=== PATIENT | female | born 1985 | race Caucasian/White ===

== ENCOUNTER 2018-09-07 22:36 | Inpatient (IN) | payer OTHER ==
[~2018-09-07] VITALS: Ht 170.2 cm; Wt 104.1 kg
[2018-09-07] MEDS ORDERED: ONDANSETRON 2MG/ML, 2ML IVPush PRN (23:00)
[2018-09-07] MEDS ORDERED: CALCIUM CARBONATE 500 MG TAB.CHEW PO PRN (23:00)
[2018-09-07] MEDS ORDERED: OXYTOCIN 30U/ 0.9% NaCL 500ML 500 ML IV ONE (23:00)
[2018-09-07] MEDS ORDERED: FENTANYL PF 100 MCG/2ML IV PRN (23:00)
[2018-09-07] MEDS ORDERED: D5%-LACTATED RINGERS 1,000 ML IV SCH (23:00)
[2018-09-07] MEDS ORDERED: TERBUTALINE 1 MG/ML, 1ML IVPush PRN (23:00)
[2018-09-07] MEDS ORDERED: FENTANYL PF 100 MCG/2ML IVPush PRN (23:00)
[2018-09-07 23:24] LABS: BASOPHILS # (AUTO) 0.01 x10^3/uL (0-0.1); BASOPHILS % (AUTO) 0 % (0-1); EOSINOPHILS # (AUTO) 0.12 x10^3/uL (0-0.4); EOSINOPHILS % (AUTO) 1 % (1-7); LYMPHOCYTES # (AUTO) 1.26 x10^3/uL (1-3.4); LYMPHOCYTES % (AUTO) 9 % (22-44); MD NO; MEAN CORPUSCULAR HEMOGLOBIN 29.4 pg (27.0-34.8); MEAN CORPUSCULAR HGB CONC 33.7 g/dL (32.4-35.8); MEAN CORPUSCULAR VOLUME 87.4 fL (80-100); MEAN PLATELET VOLUME 7.7 fL (7.4-10.4); MONOCYTES # (AUTO) 0.68 x10^3/uL (0.2-0.8); MONOCYTES % (AUTO) 5 % (2-9); NEUTROPHILS # (AUTO) 12.61 x10^3/uL (1.8-6.8); NEUTROPHILS % (AUTO) 86 % (42-75); PLATELET COUNT 249 x10^3/uL (130-400); RED BLOOD COUNT 4.22 x10^6/uL (3.82-5.3); RED CELL DISTRIBUTION WIDTH 13.6 % (9.6-15.2)
[2018-09-07] MEDS ORDERED: OXYTOCIN 30U/ 0.9% NaCL 500ML 500 ML ONE (23:24)
[2018-09-07] MEDS ORDERED: LIDOCAINE 1%, 20ML ONE (23:24)
[2018-09-07] MEDS ORDERED: MISOPROSTOL 200 MCG TABLET ONE (23:24)
[2018-09-07] MEDS ORDERED: FENTANYL/BUPIV./NS/PF 250 ML EPIDCONT SCH (23:26)
[2018-09-07] MEDS ORDERED: FENTANYL PF 500 MCG, BUPIVACAINE/PF 0.5%, 30ML 62.5 ML in SODIUM CHLORIDE 0.9% 177.5 ML EPIDCONT SCH (23:30)
[2018-09-07] MEDS ORDERED: BUPIVACAINE 0.25% ONE (23:58)
[2018-09-07] MEDS ORDERED: FENTANYL/BUPIV./NS/PF 250 ML EPIDCONT ONE (23:59)
[2018-09-08] MEDS ORDERED: FENTANYL/BUPIV./NS/PF 250 ML EPIDCONT ONE (00:05)
[2018-09-08] MEDS: LACTATED RINGERS 1,000 ML IV SCH ×2 (00:29→07:44)
[2018-09-08] MEDS ORDERED: PREN-59 PO (00:36)
[2018-09-08] MEDS ORDERED: RANI150T23 PO (00:36)
[2018-09-08] MEDS ORDERED: BUPIVACAINE 0.25% ONE (00:41)
[2018-09-08] MEDS ORDERED: TERBUTALINE 1 MG/ML, 1ML ONE (02:44)
[2018-09-08] MEDS ORDERED: NEWBORN KIT ONE (12:22)
[2018-09-08] MEDS ORDERED: CEFAZOLIN PMX 1GM/50ML 50 ML IV ONE (13:30)
[2018-09-08] MEDS ORDERED: MISOPROSTOL 200 MCG TABLET PR ONE (13:30)
[2018-09-08] MEDS ORDERED: CEFAZOLIN PMX 2GM/50ML 50 ML IVPB ONE (13:30)
[2018-09-08] MEDS ORDERED: OXYTOCIN 30U/ 0.9% NaCL 500ML 500 ML ONE (13:37)
[2018-09-08] MEDS: OXYTOCIN 30U/ 0.9% NaCL 500ML 500 ML IV SCH ×2 (13:41→23:31)
[2018-09-08 16:10] VITALS: BP 137/80
[2018-09-08] MEDS: IBUPROFEN 600 MG TABLET PO PRN (19:53)
[2018-09-08 21:02] LABS: MEAN CORPUSCULAR HEMOGLOBIN 29.4 pg (27.0-34.8); MEAN CORPUSCULAR HGB CONC 33.8 g/dL (32.4-35.8); MEAN CORPUSCULAR VOLUME 87.1 fL (80-100); PLATELET COUNT 234 x10^3/uL (130-400); RED BLOOD COUNT 3.78 x10^6/uL (3.82-5.3); RED CELL DISTRIBUTION WIDTH 13.8 % (9.6-15.2)
[2018-09-08 21:04] LABS: MD YES
[2018-09-08 21:07] LABS: <PLATELET ESTIMATE> ADEQUATE; <PLT MORPHOLOGY> NORMAL PLT MORPH; ANISOCYTOSIS 1+; BAND#(MANUAL) 1.74 x10^3/uL; BANDS%(MANUAL) 7 % (0-7); LYMPH#(MANUAL) 1.25 x10^3/uL (1-3.4); LYMPHS% (MANUAL) 5 % (22-44); MONOS% (MANUAL) 4 % (2-9); SEG#(MANUAL) 20.92 x10^3/uL (1.8-6.8); SEGS% (MANUAL) 84 % (42-75)
[2018-09-08 21:30] VITALS: BP 122/73
[2018-09-09] MEDS: IBUPROFEN 600 MG TABLET PO PRN ×3 (01:53→20:49)
[2018-09-09 05:00] VITALS: BP 110/75
[2018-09-09] MEDS: OXYcodone/APAP 5/325MG TABLET PO PRN ×2 (05:09→13:49)
[2018-09-09 07:40] VITALS: BP 108/71
[2018-09-09] MEDS: PRENATAL VIT/IRON/FA 1 EACH TABLET PO SCH (09:34)
[2018-09-09] MEDS: DOCUSATE 100 MG CAPSULE PO PRN ×2 (09:34→20:49)
[2018-09-09] MEDS: OXYTOCIN 30U/ 0.9% NaCL 500ML 500 ML IV SCH (19:31)
[2018-09-09 20:55] VITALS: BP 118/76
[2018-09-10] MEDS: IBUPROFEN 600 MG TABLET PO PRN ×2 (04:30→14:06)
[2018-09-10] MEDS: OXYTOCIN 30U/ 0.9% NaCL 500ML 500 ML IV SCH (05:31)
[2018-09-10 07:40] VITALS: BP 118/80
[2018-09-10] MEDS: PRENATAL VIT/IRON/FA 1 EACH TABLET PO SCH (07:49)
[2018-09-10] MEDS: DOCUSATE 100 MG CAPSULE PO PRN (07:49)
[2018-09-10] MEDS: OXYcodone/APAP 5/325MG TABLET PO PRN ×2 (07:57→14:07)
[2018-09-10] MEDS ORDERED: OXYC-302 PO (13:30)
[2018-09-10] MEDS ORDERED: IBUP-1222 PO (13:30)
== END 2018-09-10 15:37 | disposition home or self-care (01) | DRG 807 ==
LOC: LDOP 22:36 → LDIP 22:59 → 2NW 09-08 15:48
PROVIDERS: ADMIT Obstetrics & Gynecology; ATTEND Obstetrics & Gynecology
PROC: 10E0XZZ Delivery of Products of Conception, External Approach (ICD-10-PCS; principal; 2018-09-08)
PROC: 10D17Z9 Manual Extraction of Products of Conception, Retained, Via Natural or Artificial Opening (ICD-10-PCS; 2018-09-08)
PROC: 10907ZC Drainage of Amniotic Fluid, Therapeutic from Products of Conception, Via Natural or Artificial Opening (ICD-10-PCS; 2018-09-08)
PROC: 3E0R3BZ Introduction of Anesthetic Agent into Spinal Canal, Percutaneous Approach (ICD-10-PCS; 2018-09-08)
PROC: 00HU33Z Insertion of Infusion Device into Spinal Canal, Percutaneous Approach (ICD-10-PCS; 2018-09-08)
PROC: 0HQ9XZZ Repair Perineum Skin, External Approach (ICD-10-PCS; 2018-09-08)
DX: O77.0 Labor and delivery complicated by meconium in amniotic fluid (principal); Z37.0 Single live birth; O48.0 Post-term pregnancy; Z3A.41 41 weeks gestation of pregnancy; O73.0 Retained placenta without hemorrhage; Z88.1 Allergy status to other antibiotic agents; O70.0 First degree perineal laceration during delivery
CPT/HCPCS: 36415; 59160; 85025; 86850; 86900; 99285; G0378; J0690; J3490; J2590; J3010; J7120

== ENCOUNTER 2020-07-31 15:06 | Outpatient (CLI) | payer OTHER ==
[~2020-07-31] VITALS: Ht 170.2 cm; Wt 111.3 kg
[~2020-07-31 15:06] MED LIST: IBUP-1222 PO; OXYC-302 PO; PREN-59 PO; RANI-467 PO
[2020-07-31 15:13] VITALS: BP 126/83
== END 2020-07-31 16:00 | disposition home or self-care (01) ==
LOC: LDOP 15:06 → UNDOADMIN 15:09 → LDIP 15:09 → LDOP 16:00
PROVIDERS: ATTEND Obstetrics & Gynecology
DX: O36.8130 Decreased fetal movements, third trimester, not applicable or unspecified (principal); Z3A.35 35 weeks gestation of pregnancy
CPT/HCPCS: 59025; 99211; G0463

== ENCOUNTER 2020-09-05 11:30 | Inpatient (IN) | payer OTHER ==
[~2020-09-05] VITALS: Ht 170.2 cm; Wt 114.5 kg
[~2020-09-05 11:30] MED LIST changes: -OXYC-302 PO; +OXYC1TAB14 PO
[2020-09-05] MEDS ORDERED: MISOPROSTOL 200 MCG TABLET ONE (12:42)
[2020-09-05] MEDS ORDERED: NEWBORN KIT ONE (12:42)
[2020-09-05] MEDS ORDERED: LIDOCAINE 1%, 20ML ONE (12:42)
[2020-09-05] MEDS ORDERED: OXYTOCIN 30U/ 0.9% NaCL 500ML 500 ML ONE ×2 (12:42→18:06)
[2020-09-05] MEDS ORDERED: ALUMINUM/MAG/SIMETHICONE 30 ML UDC PO PRN (13:00)
[2020-09-05] MEDS ORDERED: TERBUTALINE 1 MG/ML, 1ML IVPush PRN (13:00)
[2020-09-05] MEDS ORDERED: SODIUM CHLORIDE FLUSH 10ML SYR IVF PRN (13:00)
[2020-09-05] MEDS ORDERED: OXYTOCIN 30U/ 0.9% NaCL 500ML 500 ML IV ONE (13:00)
[2020-09-05] MEDS ORDERED: TERBUTALINE 1 MG/ML, 1ML SQ PRN (13:00)
[2020-09-05] MEDS ORDERED: FENTANYL PF 100 MCG/2ML IVPush PRN (13:00)
[2020-09-05] MEDS ORDERED: OXYTOCIN 30U/ 0.9% NaCL 500ML 500 ML IV PRN (13:00)
[2020-09-05] MEDS ORDERED: D5%-LACTATED RINGERS 1,000 ML IV SCH (13:00)
[2020-09-05] MEDS ORDERED: SODIUM CITRATE/CITRIC ACID 30 ML UDC PO PRN (13:00)
[2020-09-05] MEDS ORDERED: METOCLOPRAMIDE 5 MG/ML, 2ML IVPush PRN (13:00)
[2020-09-05] MEDS ORDERED: ONDANSETRON 2MG/ML, 2ML IVPush PRN (13:00)
[2020-09-05] MEDS ORDERED: CALCIUM CARBONATE 500 MG TAB.CHEW PO PRN (13:00)
[2020-09-05] MEDS: LACTATED RINGERS 1,000 ML IVBOLUS PRN ×2 (13:12→13:54)
[2020-09-05 13:22] LABS: BASOPHILS % (AUTO) 1 % (0-1); EOSINOPHILS % (AUTO) 1 % (1-7); LYMPHOCYTES % (AUTO) 12 % (22-44); MEAN CORPUSCULAR HEMOGLOBIN 29.1 pg (27.0-34.8); MEAN CORPUSCULAR HGB CONC 34.3 g/dL (32.4-35.8); MEAN PLATELET VOLUME 8.3 fL (7.4-10.4); MONOCYTES % (AUTO) 4 % (2-9); NEUTROPHILS % (AUTO) 83 % (42-75); PLATELET COUNT 230 x10^3/uL (130-400); RED BLOOD COUNT 4.31 x10^6/uL (3.82-5.3); RED CELL DISTRIBUTION WIDTH 13.6 % (9.6-15.2)
[2020-09-05 13:48] LABS: MD SCAN
[2020-09-05] MEDS ORDERED: FENTANYL/BUPIV./NS/PF 250 ML EPIDCONT ONE (13:53)
[2020-09-05] MEDS ORDERED: BUPIVACAINE 0.25% ONE (13:53)
[2020-09-05] MEDS ORDERED: FENTANYL PF 100 MCG/2ML ONE (13:53)
[2020-09-05] MEDS ORDERED: hydrALAzine 20 MG/ML, 1ML ONE (14:48)
[2020-09-05] MEDS ORDERED: EPHEDRINE 50 MG/ML, 1ML ONE (14:51)
[2020-09-05] MEDS: LACTATED RINGERS 1,000 ML IV SCH ×2 (17:20→21:00)
[2020-09-05] MEDS ORDERED: RHOGAM FROM BLOOD BANK 1 NOTE EA IM/IV ONE (18:00)
[2020-09-05] MEDS ORDERED: HYDROcodone/APAP 5/325 TABLET PO PRN (18:00)
[2020-09-05] MEDS ORDERED: BISACODYL 10 MG SUPP PR PRN (18:00)
[2020-09-05] MEDS ORDERED: IBUPROFEN 800 MG TABLET PO PRN (18:00)
[2020-09-05] MEDS ORDERED: MISOPROSTOL 200 MCG TABLET PR PRN (18:00)
[2020-09-05] MEDS ORDERED: DOCUSATE 100 MG CAPSULE PO PRN (18:00)
[2020-09-05] MEDS ORDERED: OXYcodone/APAP 5/325MG TABLET PO PRN (18:00)
[2020-09-05] MEDS ORDERED: ONDANSETRON 2MG/ML, 2ML IV PRN (18:00)
[2020-09-05] MEDS ORDERED: ACETAMINOPHEN 325 MG TABLET PO PRN (18:00)
[2020-09-05] MEDS ORDERED: IBUPROFEN 600 MG TABLET ONE (18:06)
[2020-09-05] MEDS: OXYTOCIN 30U/ 0.9% NaCL 500ML 500 ML IV SCH (18:10)
[2020-09-05] MEDS: IBUPROFEN 200 MG TABLET PO PRN (18:10)
[2020-09-05] MEDS ORDERED: OMEP20TA62 PO (19:07)
[2020-09-05 20:45] VITALS: BP 117/76
[2020-09-06] VITALS: BP 126/77
[2020-09-06 01:16] LABS: BASOPHILS % (AUTO) 0 % (0-1); EOSINOPHILS % (AUTO) 1 % (1-7); LYMPHOCYTES % (AUTO) 11 % (22-44); MEAN CORPUSCULAR HEMOGLOBIN 29.6 pg (27.0-34.8); MEAN CORPUSCULAR HGB CONC 34.6 g/dL (32.4-35.8); MEAN PLATELET VOLUME 8.1 fL (7.4-10.4); MONOCYTES % (AUTO) 6 % (2-9); NEUTROPHILS % (AUTO) 82 % (42-75); PLATELET COUNT 196 x10^3/uL (130-400); RED BLOOD COUNT 4.02 x10^6/uL (3.82-5.3); RED CELL DISTRIBUTION WIDTH 13.4 % (9.6-15.2)
[2020-09-06 01:26] LABS: MD NO
[2020-09-06 04:00] VITALS: BP 120/80
[2020-09-06] MEDS: OXYTOCIN 30U/ 0.9% NaCL 500ML 500 ML IV SCH (04:00)
[2020-09-06] MEDS: IBUPROFEN 200 MG TABLET PO PRN (04:05)
[2020-09-06] MEDS: LACTATED RINGERS 1,000 ML IV SCH (05:00)
[2020-09-06 07:40] VITALS: BP 119/79
[2020-09-06] MEDS ORDERED: DOCU-131 PO (08:20)
[2020-09-06] MEDS ORDERED: IBUP-1222 PO (08:20)
[2020-09-06] MEDS ORDERED: PRENATAL VIT/IRON/FA 1 EACH TABLET PO SCH (09:00)
[2020-09-06] MEDS ORDERED: IBUPROFEN 600 MG TABLET ONE (09:31)
[2020-09-06 14:15] VITALS: BP 120/75
== END 2020-09-06 18:00 | disposition home or self-care (01) | DRG 807 ==
LOC: LDOP 11:30 → LDIP 12:37 → 2NW 19:58
PROVIDERS: ADMIT Obstetrics & Gynecology; ATTEND Obstetrics & Gynecology
PROC: 0KQM0ZZ Repair Perineum Muscle, Open Approach (ICD-10-PCS; principal; 2020-09-05)
PROC: 10E0XZZ Delivery of Products of Conception, External Approach (ICD-10-PCS; 2020-09-05)
PROC: 3E0R3BZ Introduction of Anesthetic Agent into Spinal Canal, Percutaneous Approach (ICD-10-PCS; 2020-09-05)
PROC: 00HU33Z Insertion of Infusion Device into Spinal Canal, Percutaneous Approach (ICD-10-PCS; 2020-09-05)
DX: O48.0 Post-term pregnancy (principal); Z37.0 Single live birth; Z20.822 Contact with and (suspected) exposure to COVID-19; O70.1 Second degree perineal laceration during delivery; O40.9XX0 Polyhydramnios, unspecified trimester, not applicable or unspecified; Z3A.40 40 weeks gestation of pregnancy; Z80.3 Family history of malignant neoplasm of breast; Z80.7 Family history of other malignant neoplasms of lymphoid, hematopoietic and related tissues; Z83.3 Family history of diabetes mellitus; Z88.1 Allergy status to other antibiotic agents; Z80.8 Family history of malignant neoplasm of other organs or systems
CPT/HCPCS: 36415; 85025; 86592; 86850; 86900; 87635; G0378; J2590; J3010; J7120